=== PATIENT | female | born 1955 | race Caucasian/White ===

== ENCOUNTER → 2024-06-03 08:33 | Outpatient (REF) | payer OTHER, SELFPAY | LOC: WDC 08:33 | PROVIDERS: ATTENDING PHYSICIAN Obstetrics & Gynecology; FAMILY PHYSICIAN Nurse Practitioner Adult Health | DX: Z12.31 Encounter for screening mammogram for malignant neoplasm of breast (principal); Z85.3 Personal history of malignant neoplasm of breast | CPT/HCPCS: 77063; 77067 ==

== ENCOUNTER → 2024-07-28 12:56 | Outpatient (REF) | payer OTHER, SELFPAY | LOC: WDC 12:56 | PROVIDERS: ATTENDING PHYSICIAN Surgery; FAMILY PHYSICIAN Nurse Practitioner Adult Health | DX: R92.2 Inconclusive mammogram (principal) | CPT/HCPCS: 76641 ==

== ENCOUNTER → 2024-11-11 07:08 | Outpatient (REF) | payer OTHER, MEDICARE, SELFPAY | LOC: MRI 07:08 | PROVIDERS: ATTENDING PHYSICIAN Internal Medicine Cardiovascular Disease; FAMILY PHYSICIAN Nurse Practitioner Family | DX: I25.10 Atherosclerotic heart disease of native coronary artery without angina pectoris (principal); E78.5 Hyperlipidemia, unspecified; I34.0 Nonrheumatic mitral (valve) insufficiency; R94.31 Abnormal electrocardiogram [ECG] [EKG]; I35.1 Nonrheumatic aortic (valve) insufficiency | CPT/HCPCS: 75561; 75565; A9585 ==

== ENCOUNTER 2024-12-25 07:18 | Day surgery (SDC) | payer OTHER, MEDICARE, SELFPAY ==
[2024-12-25] VITALS (16 sets, daily range): BP systolic 96–135; BP diastolic 57–89; BMI 23.6
[2024-12-25 10:40] LABS: ACT-LR - POC 232 Seconds (116-155)
[2024-12-25 10:50] LABS: ACT-LR - POC 247 Seconds (116-155)
--- NOTE | 2024-12-25 11:53 | ITS.CL.PN ---
[facility] - Procedure Note
Procedure
Procedure Note:
CARDIAC CATHETERIZATION REPORT
Date of Procedure: 12/25/2024
Referring: Dr. Malcolm Martin MD
Indication: known coronary artery disease, atypical angina, cardiomyopathy
PROCEDURE(S)
1. right heart catheterization
2. left heart catheterization
3. coronary angiography
4. iFR LAD
5. IVUS RCA
6. PCI with MAYRA to RCA
ACCESS
1. 6F right radial artery (closure: radial band)
2. 5F right antecubital vein (closure: manual hemostasis)
CATHETERS
1. 5F Ava-Tamia
2. 6F JR4
3. 6F JL3.5
4. 6F EBU3.5 guide
6. 6F JR4 guide
MODERATE SEDATION: 60 minutes of moderate sedation was utilized. An independent lpn or medical assistant was present to assist with and help manage the patient's level of consciousness and physiologic status.
Note: With wire entry into the right atrium the patient went into an atrial tachycardia, likely A-fib with RVR. Hemodynamics remained stable. We attempted Valsalva and coughing without interruption of the arrhythmia. 5 mg of IV metoprolol followed
by 150 mg of IV Amiodarone were given with improvement of rates from 150s to 100s. The patient remained stable and we proceeded with the remainder of the study.
HEMODYNAMIC DATA
LV 135/7 (EDP 14) mmHg
AO 126/81 (mean 100) mmHg
RA 10 mmHg
RV 36/3 (EDP 8) mmHg
PA 37/24 (mean 29) mmHg
PCWP 23 mmHg
SaO2 93.4%
SvO2 68.5%
Hb 16.1 g/dL
CO/CI 3.4/2.29 L/min/m2
SVR 2094 dsc*-5
PVR 1.8 Wood units
Dual-lumen catheter interrogation of LVOT: Peak to peak gradient was approximately 10 mmHg (in rapid SVT). Given irregular rapid SVT, I was unable to calculate a mean gradient. There was no apparent augmentation of the gradient after a short to long
coupled RR nor was there augmentation of the gradient with Valsalva. This, in concert with her prior echocardiography, does not suggest severe resting or provocable LVOT obstruction.
CORONARY ANGIOGRAPHY
Dominance: right
LM: large with very mild distal tapering
LAD: large vessel giving rise to a small D1 and moderate caliber D2. There is a eccentric calcified stenosis in the proximal vessel and otherwise mild non-obstructive disease. Setpal collaterals are seen supplying the distal right.
LCx: large tortuous vessel giving rise to a small OM1 and large branching OM2. There is mild non-obstructive disease.
RCA: Large vessel giving rise to a moderate caliber RPDA and several small RPL branches. There is a 95% stenosis in the mid RCA and competitive flow in the RPDA.
iFR of LAD
An Omni wire was flushed and zeroed outside the body and then advanced to the left main. The wire introducer was removed and the catheter flushed with saline, after which pressure of the wire and guide were normalized. The wire was advanced to the
mid LAD and iFR recorded at 0.93 (negative). iFR pullback was performed noting a focal pattern at the proximal LAD lesion. On return to the left main, iFR appropriately normalized to ~1.0, confirming lack of wire drift.
PCI with MAYRA to RCA
Additional heparin was given to achieve ACT greater than 300. The right coronary artery was engaged with a JR4 guide catheter. A Runthrough wire was unable to cross the lesion. A Whisper wire was able to cross the lesion and was placed in the distal
RPDA. Initial lesion preparation was performed with a 2.5 mm semicompliant balloon with full expansion followed by IVUS demonstrating a 3.25 mm distal and proximal reference vessel diameter with minimal calcification. A 3.0 x 23 mm Xience Skypoint
MAYRA was deployed at 12 iker followed by post dilation with a 3.25 x 15 mm NC balloon to 16 iker throughout. Repeat IVUS demonstrated full stent expansion and apposition without dissection. Final angiographic result was excellent. The wire and guide
were removed. The patient was loaded with 600 mg of Plavix and a TR band placed.
RADIATION: dose 481 mGy; DAP 41.8 Gy*cm2; fluoroscopy time 15.1 min
CONCLUSIONS
1. Moderately elevated biventricular filling pressures, moderate postcapillary pulmonary hypertension, and normal cardiac output. Hemodynamics were performed in the setting of supraventricular tachycardia (likely A-fib) with rates varying from
100-150.
2. Resting LVOT gradient of approximately 10 mmHg peak to peak with no augmentation during Valsalva or short to long coupled RR intervals. Of note, LVOT interrogation was performed during rapid Afib, limiting utility of assessment, however there is
no evidence of significant resting or provocable LVOT gradient
3. Single-vessel obstructive coronary artery disease in a right dominant system as described with 95% mid-RCA and iFR negative 50% proximal LAD
4. Successful IVUS guided PCI to the mid RCA with a 3.0 x 23 mm Xience Skypoint MAYRA postdilated with 3.25 mm NC balloon
RECOMMENDATIONS
1. DAPT with ASA and Plavix for at least 6 months
2. Further workup and management of HCM with mild LVOTO. Consider exercise stress echo to determine if there is exertional provocation of gradients.
3. Management of Afib with initiation of Eliquis and rate control with oral metoprolol.
Copy to: Dr. Yin Kee MD (university dean); Dr. Malcolm Martin MD (university dean); MARIAH Dobson (PCP)
Signed: Arturo Childress MD, PhD
[2024-12-25] MEDS: LOPRESSOR 25 MG PO (12:28)
--- NOTE | 2024-12-25 12:41 | CM ---
price[facility]is gomez at [facility], her copay is zero dollars.
[2024-12-25 14:39] LABS: ACT-LR - POC > 397 Seconds (116-155)
--- NOTE | 2024-12-25 14:45 | CM ---
Reviewed chart. Met with Mrs. Jaime to review discharge plans. She states prior to admission she resides with her spouse in a two story home. She states she has a fourteen steps to get to bedroom/full bathroom. She states she has a powder room on
the first floor. She states prior to admission she was independent with ambulation and adls. She states she does not have any DME in the home. She states she has a prescription plan and uses [facility]. The discharge plan is to return home with
her spouse when medically stable.
--- NOTE | 2024-12-25 15:22 | PTCARENOTE ---
pt is sr on the monitor, hr in the 80s, vss. pt c/o pain at radial site. right hand purple/maroon in color. pt states 'I can not feel you touching my fingers.' Hand is swollen but soft. notified Rosanna Hernandez, came to reposition. Pt found relief. 02 sat
96%. pt offers no other complaints at this time. pt educated on plan of care and pt verbalized understanding. call callahan within reach.
[2024-12-25] MEDS: PROTONIX 40 MG PO (18:21)
[2024-12-25] MEDS: LOPRESSOR PO (18:49)
--- NOTE | 2024-12-25 19:10 | PTCARENOTE ---
pt continues to be sr on the monitor, hr in the 80s, vss. pt offers no complaints at this time. notified dr. penaloza of pts bp 104/59, held metoprolol per order. pt resting in bed comfortably. right radial/brachial dressing CDI. pt educated on plan
of care and pt verbalized understanding. call callahan within reach.
[2024-12-25] MEDS: ELIQUIS 5 MG PO (21:11)
[2024-12-25] MEDS: LIPITOR PO (21:11)
[2024-12-25] MEDS: ZETIA 10 MG PO (21:11)
[2024-12-25] MEDS: LIPITOR 40 MG PO (21:14)
[2024-12-25] MEDS: TOPROL XL 25 MG PO (22:49)
--- NOTE | 2024-12-26 01:52 | PTCARENOTE ---
Pt. has had no complaints of chest pain/discomfort so far this shift, VSS, NSR on the monitor. Right radial/brachial cath site dressings CDI with some bruising, no hematoma assessed. Pt. currently sleeping.
[2024-12-26 03:07] VITALS: BP 91/58
[2024-12-26 03:43] LABS: Hematocrit 38.3 % (37.0-47.0); Hemoglobin 13.4 g/dL (12.0-16.0); Mean Corpuscular Hgb 30.7 pg (27.0-31.0); Mean Corpuscular Volume 87.6 fL (81.0-99.0); Mean Platelet Volume 9.6 fL (7.4-10.4); Platelet Count 241 10^3/uL (130-400); Red Blood Cell Count 4.37 10^6/uL (4.20-5.40); Red Cell Dist. Width 13.3 % (11.5-14.5); White Blood Cell Count 9.4 10^3/uL (4.8-10.8)
[2024-12-26 04:02] LABS: Blood Urea Nitrogen 16 mg/dl (7-17); Calcium 8.4 mg/dl (8.4-10.2); Carbon Dioxide 25 mmol/L (22-30); Chloride 111 mmol/L (98-107); Estimated Creatinine Clearance 54 ml/min; Glucose 96 mg/dl (70-99); HDL Cholesterol 68 mg/dl; LDL Cholesterol, Calculated 57 mg/dl; Potassium 3.7 mmol/L (3.5-5.1); Sodium 140 mmol/L (135-145); Total Cholesterol 145 mg/dl (50-199); Triglyceride 100 mg/dl (10-149); Very Low Density Lipoprotein 20 mg/dl (0-30); eGFR > 60.00
[2024-12-26 08:24] VITALS: BP 105/71
--- NOTE | 2024-12-26 09:06 | W.PN.CD ---
Addendum entered and electronically signed by John Duran MD 12/26/24 13:37:
Patient seen and examined in collaboration with [facility]; agree with below.
- Patient stable status-post MAYRA to RCA yesterday.
- Triple therapy (aspirin/Plavix/Eliquis) for 1 week, then discontinue aspirin and remain on Plavix/Eliquis.
- Continue atorvastatin, ezetimibe, and metoprolol tartrate.
- Stable for discharge to home today; outpatient follow-up with primary Head Bone Grinder.
Original Note:
Today's Communication / Plan
-
d/c home
f/u Dr. Kee
Impression / Plan
-
CAD:
-Single-vessel obstructive coronary artery disease in a right dominant system as described with 95% mid-RCA and iFR negative 50% proximal LAD
- Successful IVUS guided PCI to the mid RCA with a 3.0 x 23 mm Xience Skypoint MAYRA postdilated with 3.25 mm NC balloon
-asa x 1 week then plavix/eliquis
-cardiac rehab
-LDL -57
New AF:
-Noted during [facility]. Pt states with CT with dye in past had a similar event . She questions if related to the dye. She will discuss with her primary infrastructure analyst.
- CHADSVASC 2 - plan Eliquis
-she states when bblocker has been titrated in the past it resulted in low BP. She will discuss with primary infrastructure analyst in follow up.
HCM: further eval with primary infrastructure analyst. To consider Op stress echo for exercise induced gradients.
Pt with multiple questions. Discussed med changes, cath report and plan of care moving forward. Greater than 30 min for d/c
Subjective:
Pt denies CP, SOB, palps.
Physical Exam
Vital Signs/Labs
Vital Signs
Temp Pulse Resp BP Pulse Ox
98.5 F 66 18 91/58 95
12/26/24 08:50 12/26/24 03:07 12/26/24 08:50 12/26/24 03:07 12/26/24 08:50
12/25/24 12/26/24 12/27/24
06:59 06:59 06:59
Actual Weight 54.8 kg
12/26/24 03:20
12/26/24 03:20
Triglycerides 100 mg/dl (10-149) 12/26/24 03:20
LDL Cholesterol, Calc 57 mg/dl 12/26/24 03:20
VLDL Cholesterol, Calc 20 mg/dl (0-30) 12/26/24 03:20
HDL Cholesterol 68 mg/dl 12/26/24 03:20
Physical Exam
Cardiovascular: Rhythm & rate is regular, Pedal edema is absent and S1S2 is normal
Respiratory: Lungs clear to auscul.
Neuro/Psych: AO x 3
Other: Cardiac Device Site (R arm no hematoma, there is a palpable R radial pulse. R brachial ecchymotic , mild swelling. )
Data Reviewed
-
Date of Service: December 26, 2024
EKG: Tracing Personally Visualized and interpreted (NSR 63 bpm ) and Other (Tele: NSR 70's )
--- NOTE | 2024-12-26 09:28 | PTCARENOTE ---
assessment as documented
[2024-12-26] MEDS: PLAVIX 75 MG PO (09:51)
[2024-12-26] MEDS: ASPIR LOW (ENTERIC COATED) 81 MG PO (09:51)
[2024-12-26] MEDS: ELIQUIS 5 MG PO (09:51)
--- NOTE | 2024-12-26 11:05 | W.DS.TRANS ---
Addendum entered and electronically signed by John Duran MD 12/26/24 13:35:
Agree with below.
Original Note:
DC Summary - [employer] [employer]
-
Discharge Instructions:
Discharge Diagnosis/Procedures Angioplasty and stent to Right Coronary artery,
New onset Atrial Fibrillation
Diet Low Cholesterol
Driving Restrictions No driving for 24 hours
Instructions:
Stand-Alone Forms: DC Instructions- Cath/EP Lab
Changes to Home Medications: Yes
Discharge Medications:
DC Medications w/original date entered in [facility]
Cod Liver Oil 1 Tsp 1 tsp PO DAILY 12/25/24
Ground Flax Seeds 1 tbsp PO DAILY 12/25/24
Jjh-Uzlf-Wkgwpubcj 1 cap PO DAILY 12/25/24
apixaban 5 mg tablet (Eliquis) 5 mg PO BID #60 tabs 12/25/24
ascorbic acid 1,000 kl-pozwcqegaztj-ywfsrfto powder effervescent pack (Emergen-C) 1 ea PO NOON 12/25/24
aspirin 81 mg tablet,delayed release 81 mg PO DAILY #1 tab 12/25/24
atorvastatin 20 mg tablet (Lipitor) 20 mg PO HS 12/25/24
cevimeline 30 mg capsule 1 - 3 cap PO DAILYPRN PRN burning mouth 12/25/24
cholecalciferol (vitamin D3) 25 mcg (1,000 unit) capsule (Vitamin D3) 25 mcg PO BID 12/25/24
clopidogrel 75 mg tablet 75 mg PO DAILY #30 tabs 12/25/24
estradiol 0.01% (0.1 mg/gram) vaginal cream 1 g vaginal MOWE 12/25/24
ezetimibe 10 mg tablet (Zetia) 10 mg PO HS 12/25/24
turmeric root extract 500 mg capsule 1,000 mg PO DAILY 12/25/24
vit C 250 mg-vit E 90 mg-zinc 40 mg-copper 1 rk-oaqysl-gncioi capsule (PreserVision AREDS-2) 1 tab PO BID 12/25/24
vitamin E 1,000 unit tablet 1,000 tab PO DAILY 12/25/24
metoprolol succinate 25 mg tablet,extended release 24 hr 12.5 mg (1/2 x 25 mg) PO HS #30 tabs 12/26/24
pantoprazole 40 mg tablet,delayed release (Protonix) 40 mg PO DAILY #30 tabs 12/26/24
Home Medication Changes
Stop prilosec
Start protonix 40mg po daily
Start eliquis 5mg po BID
asa 81mg po daily x 1 week then stop
clopidogrel 75mg po daily
Pending Results: No
[2024-12-26 11:45] VITALS: BP 133/66
[2024-12-28 18:57] LABS: Hepatitis C Antibody Negative (Negative)
== END 2024-12-26 13:21 | disposition home or self-care (01) ==
LOC: CATH 07:18
PROVIDERS: Nurse Practitioner; ATTENDING PHYSICIAN Student in an Organized Health Care Education/Training Program; FAMILY PHYSICIAN Nurse Practitioner Family; OTHER PHYSICIAN Internal Medicine Cardiovascular Disease
DX: I48.91 Unspecified atrial fibrillation (principal); I42.1 Obstructive hypertrophic cardiomyopathy; M32.9 Systemic lupus erythematosus, unspecified; K21.9 Gastro-esophageal reflux disease without esophagitis; I47.10 Supraventricular tachycardia, unspecified; E78.5 Hyperlipidemia, unspecified; M81.0 Age-related osteoporosis without current pathological fracture; I34.1 Nonrheumatic mitral (valve) prolapse; I27.29 Other secondary pulmonary hypertension; I25.119 Atherosclerotic heart disease of native coronary artery with unspecified angina pectoris; Z85.3 Personal history of malignant neoplasm of breast; Z79.01 Long term (current) use of anticoagulants; Z79.82 Long term (current) use of aspirin; Z79.02 Long term (current) use of antithrombotics/antiplatelets; Z79.899 Other long term (current) drug therapy
CPT/HCPCS: 93799; 92978; 99152; 99153; 80048; 80061; 85027; 85347; 86803; 93005; 93460; C1725; C1753; C1769; C1874; C1894; C9600; Q9967

== ENCOUNTER 2025-02-17 11:05 | Outpatient (RCR) | payer OTHER, MEDICARE, SELFPAY | END 2025-02-17 23:59 | disposition home or self-care (01) | LOC: CRHB 11:05 | PROVIDERS: ATTENDING PHYSICIAN Internal Medicine Cardiovascular Disease | DX: I25.10 Atherosclerotic heart disease of native coronary artery without angina pectoris (principal); Z95.5 Presence of coronary angioplasty implant and graft | CPT/HCPCS: 93797; 93798 ==

== ENCOUNTER 2025-03-12 11:12 | Outpatient (RCR) | payer OTHER, MEDICARE, SELFPAY | END 2025-03-15 13:55 | disposition home or self-care (01) | LOC: CRHB 11:12 | PROVIDERS: ATTENDING PHYSICIAN Internal Medicine Cardiovascular Disease | DX: I25.10 Atherosclerotic heart disease of native coronary artery without angina pectoris (principal); Z95.5 Presence of coronary angioplasty implant and graft | CPT/HCPCS: 93797; 93798 ==

== ENCOUNTER → 2025-05-19 09:45 | Outpatient (REF) | payer OTHER, MEDICARE, SELFPAY | LOC: WDC 09:45 | PROVIDERS: ATTENDING PHYSICIAN Obstetrics & Gynecology; FAMILY PHYSICIAN Family Medicine | DX: N64.4 Mastodynia (principal) | CPT/HCPCS: 76642; 77061; 77065 ==